=== PATIENT | male | born 1955 | race African-American/Black ===

== ENCOUNTER 2020-08-14 16:48 | Observation (INO) ==
[2020-08-14 17:17] LABS: Basophils % 0.3 % (0.0-0.8); Eosinophils # 0.1 10*3/uL (0.0-0.87); Eosinophils % 0.6 % (0.00-10.9); Hematocrit 38.6 VOL% (42.0-52.0); Hemoglobin 12.7 GM/DL (14.0-18.0); Immature Granulocytes % 0.3 %; Immature Granulocytes Absolute 0.02 #; Lymphocytes # 1.9 10*3/uL (1.4-4.0); Lymphocytes % 24.4 % (21.2-54.2); Mean Corpuscular HGB Conc 32.9 GM/DL (32-36); Mean Platelet Volume 9.1 FL (9.6-12.0); Monocytes % 9.9 % (1.7-12.7); Neutrophils % 64.5 % (38.7-73.9); Platelet Count 272 T/CUMM (130-400); Red Cell Distribution Width 13.5 % (9.3-17.3); White Blood Count 7.7 T/CUMM (4-12)
[2020-08-14 17:45] LABS: Albumin 3.7 G/DL (3.4-5.0); Bilirubin,Total 0.4 MG/DL (0.2-1.0); Calcium 8.7 MG/DL (8.5-10.1); Osmolality,Calculated 281.4 MOS/KG (273-304); Potassium 3.5 MMOL/L (3.5-5.1)
[2020-08-14] MEDS ORDERED: NITROGLYCERIN SL 0.4 MG TABLET SL STA (18:02)
[2020-08-14] MEDS ORDERED: MORPHINE 4 MG/1 ML VIAL IV STA (19:07)
[2020-08-14] MEDS ORDERED: ONDANSETRON 4 MG/2 ML VIAL IV ONE (19:07)
[2020-08-14] MEDS ORDERED: LABETALOL 20 MG/4 ML SYRINGE IV STA (20:29)
[2020-08-14] MEDS ORDERED: KETOROLAC 30 MG/1 ML VIAL IV STA (21:14)
[2020-08-14] MEDS ORDERED: GLUCAGON 1 MG VIAL IM PRN (21:34)
[2020-08-14] MEDS ORDERED: NITROGLYCERIN SL 0.4 MG TABLET SL PRN (21:34)
[2020-08-14] MEDS ORDERED: ZALEPLON 5 MG CAPSULE PO PRN (21:34)
[2020-08-14] MEDS ORDERED: POTASSIUM CHLORIDE 20 MEQ TABLET PO PRN (21:34)
[2020-08-14] MEDS ORDERED: MORPHINE 4 MG/1 ML VIAL IV PRN (21:34)
[2020-08-14] MEDS ORDERED: DEXTROSE 50% 25 GM/50 ML VIAL IV PRN (21:34)
[2020-08-14] MEDS ORDERED: ONDANSETRON 4 MG/2 ML VIAL IV PRN (21:34)
[2020-08-14 22:29] LABS: Barbiturates Screen,Urine Negative (Negative); Benzodiazepines Screen,Urine Negative (Negative); Cannabinoid Screen,Urine Negative (Negative); Opiate Screen,Urine Positive (Negative); Phencyclidine Screen,Urine Negative (Negative)
[2020-08-14 22:36] LABS: Troponin I < 0.015 NG/ML (0.00-0.045)
[2020-08-14 22:39] LABS: Risk Ratio 1.75
[2020-08-15 06:08] LABS: Troponin I < 0.015 NG/ML (0.00-0.045)
[2020-08-15] MEDS ORDERED: ASPIRIN CHEW 81 MG TABLET PO ONE (08:00)
[2020-08-15] MEDS ORDERED: ACETAMINOPHEN 325 MG TABLET PO SCH (09:00)
[2020-08-15] MEDS ORDERED: KETOROLAC 15 MG/1 ML VIAL IV ONE (11:04)
[2020-08-15] MEDS ORDERED: ASPIRIN EC 81 MG TABLET PO SCH (11:30)
[2020-08-15 11:58] VITALS: BP 169/90
[2020-08-15] MEDS ORDERED: CHLORTHALIDONE 25 MG TABLET PO SCH (12:30)
[2020-08-15] MEDS ORDERED: amLODIPine 2.5 MG TABLET PO SCH (12:30)
[2020-08-15] MEDS ORDERED: ISOSORBIDE MONONITRATE 30 MG TABLET PO SCH (13:00)
== END 2020-08-15 16:40 | disposition home or self-care (01) ==
LOC: N.EDINP 16:48 → N.ED 16:48 → N.TELEN 21:55
PROVIDERS: ADMIT Internal Medicine; ATTEND Internal Medicine